=== PATIENT | male | born 2000 | race Two or more races ===

== ENCOUNTER 2020-11-04 23:21 | Emergency (ER) | payer SELFPAY ==
[~2020-11-04] VITALS: Ht 180.3 cm; Wt 81.6 kg
[2020-11-05 01:00] VITALS: BP 123/77
[2020-11-05 01:35] LABS: Basophils # (auto) 0 10 ^3/uL (0-0.2); Basophils % (auto) 0.5 % (0.0-2.0); Eosinophils # (auto) 0.2 10 ^3/uL (0-0.8); Hematocrit 45.6 % (41.0-53.0); Hemoglobin 15.9 g/dL (13.5-17.5); Lymphocytes # (auto) 1.7 10 ^3/uL (0.4-5.4); Lymphocytes % (auto) 25.6 % (10.0-50.0); Mean Corpuscular Hemoglobin 28.9 pg (28.0-32.0); Mean Corpuscular Hgb Conc. 34.9 g/dL (32.0-36.0); Mean Corpuscular Volume 82.7 fL (80.0-100.0); Monocytes # (auto) 0.8 10 ^3/uL (0-1.3); Monocytes % (auto) 11.2 % (0.0-12.0); Neutrophils % (auto) 59.7 % (37.0-80.0); Nucleated Red Blood Cells % 0.2 %; Platelet Count (auto) 284 10^3/uL (140-450); Red Blood Cells 5.52 10^6/uL (4.5-5.90); White Blood Cell 6.7 10^3/uL (4.4-10.8)
[2020-11-05 01:54] LABS: Albumin 4.4 g/dL (3.4-5.0); BUN/Creatinine Ratio 14.6; Potassium 3.9 mmol/L (3.5-5.1)
[2020-11-05 01:56] LABS: Bilirubin, Total 0.8 mg/dL (0.2-1.0); Total Protein 8.1 g/dL (6.4-8.2)
== END 2020-11-05 03:07 | disposition home or self-care (01) ==
LOC: ER 23:21
DX: A08.4 Viral intestinal infection, unspecified (principal)
CPT/HCPCS: 36415; 74176; 80053; 82150; 83690; 85025

== ENCOUNTER 2021-02-02 02:51 | Emergency (ER) | payer OTHER ==
[~2021-02-02] VITALS: Ht 180.3 cm; Wt 84.8 kg
[2021-02-02 03:11] VITALS: BP 130/72
== END 2021-02-02 04:57 | disposition home or self-care (01) ==
LOC: ER 02:51
DX: S90.122A Contusion of left lesser toe(s) without damage to nail, initial encounter (principal); X58.XXXA Exposure to other specified factors, initial encounter; Y93.89 Activity, other specified; Y92.89 Other specified places as the place of occurrence of the external cause; Y99.8 Other external cause status
CPT/HCPCS: 73630